=== PATIENT | male | born 1940 | race Caucasian/White ===

== ENCOUNTER → 2020-11-07 | Outpatient (CLI) | payer MEDICARE, OTHER ==
--- NOTE | 2020-11-07 11:30 | RAD ---
EXAM: Abdominal aortic sonogram. HISTORY: Aortic aneurysm screening. Hypertension. Cigarette smoking. TECHNIQUE: Sonographic imaging of the abdominal aorta was performed. COMPARISON: None. FINDINGS: The proximal abdominal aorta is obscured due to bowel gas. The mid abdominal aorta measures 2.8 cm in caliber. The distal abdominal aorta measures 2.7 cm in caliber. The common iliac arteries measure 1.8 cm on the right and 1.6 cm on the left. There is aortobiiliac atherosclerosis. IMPRESSION: 1. Ectatic abdominal aorta measuring 2.8 cm in caliber. The proximal abdominal aorta is obscured due to bowel gas. 2. Aortobiiliac atherosclerosis. Electronically signed by: Nicole Szymanski MD (11/07/2020 11:28 AM) [id number]
== END ==
LOC: US 10:42
PROVIDERS: ATTEND Internal Medicine
DX: I77.811 Abdominal aortic ectasia (principal); I70.0 Atherosclerosis of aorta; I10 Essential (primary) hypertension; F17.200 Nicotine dependence, unspecified, uncomplicated
CPT/HCPCS: 76770

== ENCOUNTER 2021-04-30 10:23 | Emergency (ER) | payer MEDICARE, OTHER ==
[~2021-04-30] VITALS: Ht 180.3 cm; Wt 72.0 kg
[2021-04-30 11:22] LABS: BASO % 1 % (0-3); EOS # 0.1 x10^3/uL (0.0-0.7); EOS % 1 % (0-3); HEMATOCRIT 35.7 % (39.0-53.0); HEMOGLOBIN 11.9 g/dL (13.0-17.5); LYMPH # 0.8 x10^3/uL (1.0-4.8); LYMPH % 12 % (24-48); MEAN CORPUSCULAR HEMOGLOBIN 33 pg (25-35); MEAN CORPUSCULAR HGB CONC 33 g/dL (31-37); MEAN CORPUSCULAR VOLUME 98 fL (79-100); MONO # 0.6 x10^3/uL (0.0-1.1); MONO % 8 % (0-9); NEUT # 5.5 x10^3uL (1.8-7.7); NEUT % 78 % (31-73); PLATELET COUNT 177 x10^3/uL (140-400); RED BLOOD COUNT 3.65 x10^6/uL (4.30-5.70); RED CELL DISTRIBUTION WIDTH 13.3 % (11.5-14.5); WHITE BLOOD COUNT 7.1 x10^3/uL (4.0-11.0)
--- NOTE | 2021-04-30 11:22 | PHYS DOC ---
Past History Past Medical History: High Cholesterol, Hypertension Additional Past Medical Histor: AAA monitoring (CHIDI KERR APRN) Past Surgical History: Appendectomy, Cancer Surgery, Hip Replacement Additional Past Surgical Histo: L hip. (CHIDI KERR APRN) Smoking: Non-smoker Alcohol Use: None Drug Use: None (CHIDI KERR APRN) General Adult EDM: Chief Complaint: LOWER EXTREMITY SWELLING HPI: HPI: Patient is a 80-year-old male that presents today with left leg pain. Patient states the pain started a couple of days ago in the upper thigh area, he states that as the last couple days got along its become more painful and more swollen and the skin is becoming tight to touch. Patient denies trauma or fall. [place]iera [place]is is able to ambulate but it does hurt when he does. 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 (CHIDI KERR APRN) Review of Systems: Review of Systems: Constitutional: Denies fever or chills Eyes: Denies change in visual acuity HENT: Denies nasal congestion or sore throat Respiratory: Denies cough or shortness of breath Cardiovascular: Denies chest pain or edema GI: Denies abdominal pain, nausea, vomiting, bloody stools or diarrhea : Denies dysuria Musculoskeletal: Left leg pain Integument: Denies rash Neurologic: Denies headache, focal weakness or sensory changes Endocrine: Denies polyuria or polydipsia Lymphatic: Denies swollen glands Psychiatric: Denies depression or anxiety (CHIDI KERR APRN) Allergies: Allergies: Allergies Coded Allergies Type Severity Reaction Last Updated Verified No Known Drug Allergies 04/30/21 No (CHIDI KERR APRN) Physical Exam: PE: Constitutional: Well developed, well nourished, no acute distress, non-toxic appearance. [] HENT: Normocephalic, atraumatic, bilateral external ears normal, oropharynx moist, no oral exudates, nose normal. [] Eyes: PERRLA, EOMI, conjunctiva normal, no discharge. [] Neck: Normal range of motion, no tenderness, supple, no stridor. [] Cardiovascular:Heart rate regular rhythm, no murmur [] Lungs & Thorax: Bilateral breath sounds clear to auscultation [] Abdomen: Bowel sounds normal, soft, no tenderness, no masses, no pulsatile masses. [] Skin: Warm, dry, no erythema, no rash. [] Back: No tenderness, no CVA tenderness. [] Extremities: Left leg tender to touch ecchymotic area noted in the left thigh area long term down the thigh, left dorsalis pedis pulse 2+, 2+ edema with skin tautness noted, sensory is decreased in the feet, cap refill is less than 2 seconds. Neurologic: Alert and oriented X 3, normal motor function, normal sensory function, no focal deficits noted. [] Psychologic: Affect normal, judgement normal, mood normal. [] (CHIDI KERR APRN) Current Patient Data: Labs: Laboratory Tests Test 04/30/21 11:05 White Blood Count 7.1 x10^3/uL Red Blood Count 3.65 x10^6/uL Hemoglobin 11.9 g/dL Hematocrit 35.7 % Mean Corpuscular Volume 98 fL Mean Corpuscular Hemoglobin 33 pg Mean Corpuscular Hemoglobin Concent 33 g/dL Red Cell Distribution Width 13.3 % Platelet Count 177 x10^3/uL Neutrophils (%) (Auto) 78 % Lymphocytes (%) (Auto) 12 % Monocytes (%) (Auto) 8 % Eosinophils (%) (Auto) 1 % Basophils (%) (Auto) 1 % Neutrophils # (Auto) 5.5 x10^3uL Lymphocytes # (Auto) 0.8 x10^3/uL Monocytes # (Auto) 0.6 x10^3/uL Eosinophils # (Auto) 0.1 x10^3/uL Basophils # (Auto) 0.0 x10^3/uL Prothrombin Time 11.0 SEC Prothromb Time International Ratio 1.1 Activated Partial Thromboplast Time 27 SEC Sodium Level 142 mmol/L Potassium Level 3.7 mmol/L Chloride Level 107 mmol/L Carbon Dioxide Level 29 mmol/L Anion Gap 6 Blood Urea Nitrogen 10 mg/dL Creatinine 1.0 mg/dL Estimated GFR (Cockcroft-Gault) 72.1 BUN/Creatinine Ratio 10 Glucose Level 103 mg/dL Calcium Level 8.3 mg/dL Total Bilirubin 1.1 mg/dL Aspartate Amino Transf (AST/SGOT) 23 U/L Alanine Aminotransferase (ALT/SGPT) 28 U/L Alkaline Phosphatase 107 U/L Troponin I High Sensitivity 14 ng/L Total Protein 5.3 g/dL Albumin 2.8 g/dL Albumin/Globulin Ratio 1.1 Current Medications Medications (Trade) Dose Ordered Sig/Beatriz Route PRN Reason Start Time Stop Time Status Last Admin Dose Admin Fentanyl Citrate (Fentanyl 2ml Vial) 50 mcg 1X ONCE IVP 04/30/21 11:30 04/30/21 11:36 DC 04/30/21 11:54 Vital Signs: Vital Signs Date Time Temp Pulse Resp B/P (MAP) Pulse Ox O2 Delivery O2 Flow Rate FiO2 04/30/21 14:06 18 97 Room Air 04/30/21 11:54 18 97 Room Air 04/30/21 10:32 97.7 51 18 100 Room Air Vital Signs Date Time Temp Pulse Resp B/P (MAP) Pulse Ox O2 Delivery O2 Flow Rate FiO2 04/30/21 10:32 97.7 51 18 100 Room Air (CHIDI KERR MARKET INTELLIGENCE CONSULTANT) EKG: EKG: [] (CHIDI KERR MARKET INTELLIGENCE CONSULTANT) Radiology/Procedures: Radiology/Procedures: REASON: swelling left thigh no trauma PROCEDURE: VENOUS LOWER EXTREMITY LEFT EXAM: Left lower extremity venous Doppler sonogram. HISTORY: Pain and swelling. TECHNIQUE: Bee scale and color Doppler sonographic evaluation of the left lower extremity veins with spectral waveform analysis was performed. FINDINGS: There is normal color flow, normal compressibility and there are normal spectral waveforms in the common femoral, superficial femoral, popliteal, posterior tibial and greater saphenous veins. There is soft tissue edema. IMPRESSION: No Doppler evidence of lower extremity deep venous thrombosis. Electronically signed by: Nicole Linton MD (04/30/2021 11:44 AM) [id number] REASON: left leg pain, X A FEW DAYS, NO KNOWN INJURY PROCEDURE: HIP LEFT 2V WITH PELVIS EXAM: Pelvis and left hip, 3 views. HISTORY: Pain. COMPARISON: None. FINDINGS: A frontal view of the pelvis and frontal and frog-leg views of the left hip are obtained. There is a left hip arthroplasty in expected position. There is no evidence of arthroplasty loosening, asymmetric liner wear or osteolysis. There is heterotopic ossification adjacent to the left greater trochanter. There is degenerative change involving the lower lumbar spine. IMPRESSION: 1. Left hip arthroplasty in expected vision. 2. No acute osseous finding. Electronically signed by: Nicole Linton MD (04/30/2021 12:42 PM) [id number] DICTATED AND SIGNED BY: NICOLE LINTON MD DATE: 04/30/21 1221 CC: CHIDI KERR APRN; ANABELLA JIANG MD ~MTH0 0 [] (CHIDI KERR APRN) Heart Score: C/O Chest Pain: N/A Risk Factors: Risk Factors: DM, Current or recent (<one month) smoker, HTN, HLP, family history of CAD, obesity. Risk Scores: Score 0 - 3: 2.5% MACE over next 6 weeks - Discharge Home Score 4 - 6: 20.3% MACE over next 6 weeks - Admit for Clinical Observation Score 7 - 10: 72.7% MACE over next 6 weeks - Early Invasive Strategies (CHIDI KERR APRN) Course & Med Decision Making: Course & Med Decision Making Pertinent Labs and Imaging studies reviewed. (See chart for details) 1350 did review radiological and exam results with Dr. Prado, he did not see a nything acute and the findings with correlation to a life-threatening emergency. I did speak to patient at length about following up with primary care physician Dr. Jiang for further management of his left leg pain. I did inform him there was no blood clots noted nor a fracture with the x-ray of his left hip. I will send a prescription for some pain medication for him to follow-up to use over the next couple of days until he follows up with Dr. Jiang. Patient is encouraged to elevate the legs if he is sitting in a chair, also to watch his salt intake over the next couple of days. Patient and significant other verbalized understanding of this and is agreeable to the plan of care following up next week Dr. Jiang or to return here in the emergency department if you have any other concerns. (CHIDI KERR APRN) Dragon Disclaimer: Dragon Disclaimer: This electronic medical record was generated, in whole or in part, using a voice recognition dictation system. (CHIDI KERR APRN) Attending Co-Sign The patient was seen and interviewed as well as examined at the bedside. The chart was reviewed. The case was discussed. Agree with the plan of care. (EMILY PRADO DO) Departure Departure: Impression: Primary Impression: Left leg pain Disposition: HOME / SELF CARE / HOMELESS Condition: STABLE Referrals: ANABELLA JIANG MD (PCP) Patient Instructions: Hip Pain Additional Instructions: Elevate legs while sitting in a chair to avoid swelling Tramadol take 1 to 2 tablets every 6 hours as needed for pain, use with caution may cause drowsiness and constipation Follow-up with Dr. Jiang next week for further management of this pain in your left leg Return to the emergency department if you have difficulties walking, you have fallen and have increased pain in your left leg, your leg becomes cold and discolored, or you cannot use the leg. Scripts Tramadol Hcl (TRAMADOL HCL) 50 Mg Tablet 50 MG PO PRN Q6HRS PRN for PAIN, #20 TAB Prov: CHIDI KERR APRN 04/30/21 CHIDI KERR APRN Apr 30, 2021 11:22 EMILY PRADO DO May 02, 2021 08:33
[2021-04-30 11:32] LABS: CALCIUM 8.3 mg/dL (8.5-10.1); GFR 72.1; POTASSIUM 3.7 mmol/L (3.5-5.1)
[2021-04-30 11:37] LABS: ALBUMIN 2.8 g/dL (3.4-5.0); ALBUMIN/GLOBULIN RATIO 1.1 (1.0-1.7); TOTAL BILIRUBIN 1.1 mg/dL (0.2-1.0); TOTAL PROTEIN 5.3 g/dL (6.4-8.2)
--- NOTE | 2021-04-30 11:47 | RAD ---
EXAM: Left lower extremity venous Doppler sonogram. HISTORY: Pain and swelling. TECHNIQUE: Bee scale and color Doppler sonographic evaluation of the left lower extremity veins with spectral waveform analysis was performed. FINDINGS: There is normal color flow, normal compressibility and there are normal spectral waveforms in the common femoral, superficial femoral, popliteal, posterior tibial and greater saphenous veins. There is soft tissue edema. IMPRESSION: No Doppler evidence of lower extremity deep venous thrombosis. Electronically signed by: Nicole Szymanski MD (04/30/2021 11:44 AM) [id number]
--- NOTE | 2021-04-30 12:45 | RAD ---
EXAM: Pelvis and left hip, 3 views. HISTORY: Pain. COMPARISON: None. FINDINGS: A frontal view of the pelvis and frontal and frog-leg views of the left hip are obtained. T here is a left hip arthroplasty in expected position. There is no evidence of arthroplasty loosening, asymmetric liner wear or osteolysis. There is heterotopic ossification adjacent to the left greater trochanter. There is degenerative change involving the lower lumbar spine. IMPRESSION: 1. Left hip arthroplasty in expected vision. 2. No acute osseous finding. Electronically signed by: Nicole Szymanski MD (04/30/2021 12:42 PM) [id number]
--- NOTE | 2021-04-30 13:19 | EKG ---
[address] [address] Test Date: 2021-04-30 Test Time: 12:34:58 Pat Name: MATT NAPIER Department: Room: Gender: M Senior Project Accountant: BERRY : 1940 Requested By: CHIDI KERR Order Number: [id number] Reading MD: Randy Alfonso Measurements Intervals [place] Rate: 47 P: 32 ME: 166 QRS: -40 QRSD: 142 T: -24 QT: 518 QTc: 458 Interpretive Statements SINUS BRADYCARDIA ABNORMAL LEFT AXIS DEVIATION LEFT ANTERIOR FASCICULAR BLOCK NON SPECIFIC INTRAVENTRICULAR BLOCK Electronically Signed On 04-30-2021 19:53:27 RN OR LPN by Randy Alfonso
[2021-04-30] MEDS ORDERED: TRAM50TA PO (14:01)
== END 2021-04-30 14:10 | disposition home or self-care (01) ==
LOC: ER 10:23
DX: M79.605 Pain in left leg (principal); R22.42 Localized swelling, mass and lump, left lower limb; E78.00 Pure hypercholesterolemia, unspecified; I10 Essential (primary) hypertension
CPT/HCPCS: 36415; 73502; 80053; 84484; 85025; 85610; 85730; 93005; 93971; 96374; 99285; J3010